=== PATIENT | female | born 1960 | race African-American/Black ===

== ENCOUNTER 2018-07-13 10:21 | Inpatient (IN) | payer MEDICAID ==
[~2018-07-13] VITALS: Ht 170.2 cm; Wt 86.2 kg
[~2018-07-13 10:21] MED LIST: HYDROCHLOROTHIAZIDE; PROZAC; STOOL SOFTNER; TRAZODONE
[2018-07-13] MEDS ORDERED: MORPHINE SULFATE 4 MG/ML CPJ (NOT FOR IM USE) IV STA (11:21)
[2018-07-13] MEDS ORDERED: SODIUM CHLORIDE 0.9% 1,000 ML IV ONE ×2 (11:21→12:30)
[2018-07-13] MEDS ORDERED: PIPERACILLIN/TAZOBACTAM 3.375GM/50ML PREMIX IV ONE (11:30)
[2018-07-13 11:59] LABS: CLARITY URINE CLEAR (CLEAR); COLOR URINE YELLOW (YELLOW); KETONES URINE NEGATIVE (NEGATIVE); LEUKOCYTE ESTERASE URINE NEGATIVE (NEGATIVE); NITRITE URINE NEGATIVE (NEGATIVE); OCCULT BLOOD URINE NEGATIVE (NEGATIVE); PROTEIN URINE NEGATIVE (NEGATIVE); SPECIFIC GRAVITY URINE 1.011 (1.005-1.030); UROBILINOGEN URINE 0.2 E.U./dL (0.2-1.0)
[2018-07-13 12:52] LABS: BASOPHILS % 0.9 % (0.0-2.0); EOSINOPHILS % 0.6 % (0.0-5.0); LYMPHOCYTES % 17.5 % (20.0-50.0); MEAN CORPUSCULAR HEMOGLOBIN 25.3 pg (28.0-32.0); MEAN CORPUSCULAR VOLUME 78.2 fL (81.0-99.0); MEAN PLATELET VOLUME 6.5 fl (7.4-10.4); MONOCYTES % 7.7 % (2.0-8.0); NEUTROPHILS % 73.3 % (40.0-76.0); PLATELET 502 x1000/uL (130-400); RED BLOOD CELL COUNT 4.73 mill/uL (4.2-5.4); RED CELL DISTRIBUTION WIDTH 14.2 % (11.6-14.6)
[2018-07-13 12:56] LABS: CHLORIDE 103 mEq/L (98-107)
[2018-07-13 12:59] LABS: PROTHROMBIN TIME 10.4 sec (9.1-11.1)
[2018-07-13] MEDS ORDERED: PIPERACILLIN/TAZ 3.375G PREMIX 50 ML IV ONE (13:30)
[2018-07-13] MEDS ORDERED: BUPIVACAINE HCL 0.5% (5MG/ML) 50ML ONE (13:39)
[2018-07-13] MEDS ORDERED: SKIN ADHESIVE 0.7 GM EA TOP ONE (13:39)
[2018-07-13] MEDS ORDERED: HYDROCODONE/ACETAMINOPHEN 5/325MG TABLET PO PRN (14:00)
[2018-07-13] MEDS ORDERED: FENTANYL CITRATE/PF 50MCG/ML 2ML VIAL ONE ×3 (14:11→17:06)
[2018-07-13] MEDS ORDERED: NEOSTIGMINE METHYLSULFATE 1MG/ML 10 ML VIAL ONE (14:11)
[2018-07-13] MEDS ORDERED: ROCURONIUM BROMIDE 10MG/ML VIAL 5ML IV ONE (14:11)
[2018-07-13] MEDS ORDERED: METOCLOPRAMIDE HCL 10MG/2ML VIAL ONE (14:12)
[2018-07-13] MEDS ORDERED: CEFAZOLIN SODIUM 1000MG/VIAL ONE (14:12)
[2018-07-13] MEDS ORDERED: PHENYLEPHRINE HCL 10 MG/ML 1ML (IV VIAL) IV ONE (14:12)
[2018-07-13] MEDS ORDERED: GLYCOPYRROLATE 0.2 MG/ML 2ML VIAL ONE (14:12)
[2018-07-13] MEDS ORDERED: EPHEDRINE SULFATE 50MG/ML VIAL ONE (14:12)
[2018-07-13] MEDS ORDERED: PROPOFOL 200MG/20ML VIAL IV ONE (14:12)
[2018-07-13] MEDS ORDERED: SODIUM CHLORIDE 0.9% 10ML VIAL ONE (14:12)
[2018-07-13] MEDS ORDERED: SUCCINYLCHOLINE CHLORIDE 200MG/10ML IV ONE (14:12)
[2018-07-13] MEDS ORDERED: MIDAZOLAM HCL 2 MG/2 ML VIAL ONE (14:12)
[2018-07-13] MEDS ORDERED: LIDOCAINE HCL/PF 1% 10 MG/ML 5ML VIAL ONE (14:12)
[2018-07-13] MEDS ORDERED: DOCUSATE SODIUM 100MG CAPSULE PO PRN (15:15)
[2018-07-13] MEDS ORDERED: HYDROMORPHONE HCL/PF 2MG/ML (OR) ONE (17:36)
[2018-07-13] MEDS ORDERED: DEXT 5%/0.45% NACL KCL 20MEQ/L 1,000 ML IV SCH (18:27)
[2018-07-13] MEDS ORDERED: SODIUM CHLORIDE 0.9% 1,000 ML IV SCH (18:28)
[2018-07-13] MEDS ORDERED: MORPHINE SULFATE 4 MG/ML CPJ (NOT FOR IM USE) IV PRN (18:30)
[2018-07-13] MEDS ORDERED: ONDANSETRON HCL 4MG/2ML INJ IV PRN ×2 (18:30)
[2018-07-13] MEDS ORDERED: MEPERIDINE HCL/PF 25MG/ML CPJ IV PRN ×2 (18:30)
[2018-07-13] MEDS ORDERED: MORPHINE SULFATE 2 MG/ML CPJ (NOT FOR IM USE) IV PRN (18:30)
[2018-07-13] MEDS: HYDROMORPHONE HCL/PF 2MG/ML CPJ IV PRN ×2 (20:01→20:10)
[2018-07-13 21:00] VITALS: BP 118/58
[2018-07-13] MEDS ORDERED: PIPERACILLIN/TAZOBACTAM 3.375 G/VIAL IV SCH (22:00)
[2018-07-13] MEDS: PIPERACILLIN/TAZ 3.375G PREMIX 50 ML IV SCH (22:23)
[2018-07-13] MEDS: FAMOTIDINE 20MG/2ML VIAL IV SCH (22:23)
[2018-07-13] MEDS: DEXT 5%/0.45% NACL KCL 20MEQ/L 1,000 ML IV SCH (23:33)
[2018-07-13] MEDS: MORPHINE SULFATE 4 MG/ML CPJ (NOT FOR IM USE) IV PRN (23:52)
[2018-07-13] MEDS: SODIUM CHLORIDE 0.9% INJ 3ML FLUSH IVF SCH (23:53)
[2018-07-14] VITALS: BP 138/70
[2018-07-14] MEDS ORDERED: ALBUL GT
[2018-07-14] MEDS ORDERED: ALBU18HF2 IH
[2018-07-14 04:00] VITALS: BP 154/83
[2018-07-14] MEDS: MORPHINE SULFATE 4 MG/ML CPJ (NOT FOR IM USE) IV PRN ×2 (04:15→12:52)
[2018-07-14] MEDS: PIPERACILLIN/TAZ 3.375G PREMIX 50 ML IV SCH ×4 (04:15→20:37)
[2018-07-14] MEDS ORDERED: LOSA1TAB40 MT (04:30)
[2018-07-14] MEDS ORDERED: AMLO5TAB88 MT (04:30)
[2018-07-14] MEDS: HYDROCODONE/ACETAMINOPHEN 5/325MG TABLET PO PRN ×2 (07:02→20:37)
[2018-07-14] MEDS: SODIUM CHLORIDE 0.9% INJ 3ML FLUSH IVF SCH ×2 (07:04→14:37)
[2018-07-14 07:29] LABS: HEMATOCRIT. 34.3 % (36.0-48.0); HEMOGLOBIN. 11.1 g/dL (12.0-16.0); MEAN CORPUSCULAR HEMOGLOBIN 25.5 pg (28.0-32.0); MEAN PLATELET VOLUME 6.9 fl (7.4-10.4); PLATELET 453 x1000/uL (130-400); RED BLOOD CELL COUNT 4.35 mill/uL (4.2-5.4); RED CELL DISTRIBUTION WIDTH 14.4 % (11.6-14.6)
[2018-07-14 08:00] VITALS: BP 149/78
[2018-07-14 08:00] LABS: CHLORIDE 108 mEq/L (98-107)
[2018-07-14 08:09] LABS: PHOSPHORUS 2.5 mg/dL (2.5-4.9)
[2018-07-14] MEDS: DEXT 5%/0.45% NACL KCL 20MEQ/L 1,000 ML IV SCH ×2 (08:20→14:38)
[2018-07-14] MEDS: FAMOTIDINE 20MG/2ML VIAL IV SCH ×2 (08:20→20:38)
[2018-07-14] MEDS ORDERED: ACETAMINOPHEN 650MG SUPP PR PRN (10:30)
[2018-07-14 12:00] VITALS: BP 150/77
[2018-07-14 12:18] LABS: PLATELET ESTIMATE INCREASED
[2018-07-14 16:00] VITALS: BP 141/72
[2018-07-14] MEDS ORDERED: GUAIFENESIN-DM 200MG-20MG/10ML UDC PO PRN (19:45)
[2018-07-14 20:00] VITALS: BP 151/73
[2018-07-15] VITALS: BP 143/70
[2018-07-15] MEDS: PIPERACILLIN/TAZ 3.375G PREMIX 50 ML IV SCH ×4 (01:51→20:51)
[2018-07-15] MEDS: HYDROCODONE/ACETAMINOPHEN 5/325MG TABLET PO PRN ×2 (01:52→05:57)
[2018-07-15 04:00] VITALS: BP 141/71
[2018-07-15] MEDS: DEXT 5%/0.45% NACL KCL 20MEQ/L 1,000 ML IV SCH ×2 (04:16→16:51)
[2018-07-15 07:03] LABS: BASOPHILS % 0.2 % (0.0-2.0); EOSINOPHILS % 0.1 % (0.0-5.0); HEMATOCRIT. 28.9 % (36.0-48.0); HEMOGLOBIN. 9.4 g/dL (12.0-16.0); LYMPHOCYTES % 8.5 % (20.0-50.0); MEAN CORPUSCULAR HEMOGLOBIN 25.2 pg (28.0-32.0); MEAN CORPUSCULAR VOLUME 77.4 fL (81.0-99.0); MEAN PLATELET VOLUME 6.9 fl (7.4-10.4); MONOCYTES % 8.8 % (2.0-8.0); NEUTROPHILS % 82.4 % (40.0-76.0); PLATELET 400 x1000/uL (130-400); RED BLOOD CELL COUNT 3.73 mill/uL (4.2-5.4); RED CELL DISTRIBUTION WIDTH 14.3 % (11.6-14.6)
[2018-07-15 07:44] LABS: CHLORIDE 108 mEq/L (98-107)
[2018-07-15 08:00] VITALS: BP 157/80
[2018-07-15] MEDS: FAMOTIDINE 20MG/2ML VIAL IV SCH ×2 (08:32→20:34)
[2018-07-15] MEDS: MORPHINE SULFATE 4 MG/ML CPJ (NOT FOR IM USE) IV PRN ×3 (10:46→20:38)
[2018-07-15 12:00] VITALS: BP 153/79
[2018-07-15 16:00] VITALS: BP 148/68
[2018-07-15] MEDS ORDERED: IPRATROPIUM BROMIDE (0.02%) 0.5MG/2.5ML NEB HHN PRN (18:15)
[2018-07-15 20:00] VITALS: BP_SYST 105; BP_SYST 170; BP_DIAS 60; BP_DIAS 80
[2018-07-15] MEDS: SENNOSIDES/DOCUSATE SOD 8.6/50MG TABLET PO SCH (20:35)
[2018-07-15] MEDS: CLONIDINE 0.1MG TABLET PO PRN (20:35)
[2018-07-15] MEDS: GUAIFENESIN 600MG ER TABLET PO SCH (20:36)
[2018-07-15] MEDS: ONDANSETRON HCL 4MG/2ML INJ IV PRN (20:59)
[2018-07-16] VITALS: BP 146/77
[2018-07-16] MEDS: DEXT 5%/0.45% NACL KCL 20MEQ/L 1,000 ML IV SCH ×3 (03:37→20:42)
[2018-07-16] MEDS: MORPHINE SULFATE 4 MG/ML CPJ (NOT FOR IM USE) IV PRN ×6 (03:37→20:35)
[2018-07-16] MEDS: PIPERACILLIN/TAZ 3.375G PREMIX 50 ML IV SCH ×4 (03:37→20:38)
[2018-07-16 04:00] VITALS: BP 161/88
[2018-07-16 06:07] LABS: HEMATOCRIT. 32.9 % (36.0-48.0); HEMOGLOBIN. 10.7 g/dL (12.0-16.0); MEAN CORPUSCULAR HEMOGLOBIN 25.3 pg (28.0-32.0); MEAN PLATELET VOLUME 6.9 fl (7.4-10.4); PLATELET 481 x1000/uL (130-400); RED BLOOD CELL COUNT 4.22 mill/uL (4.2-5.4); RED CELL DISTRIBUTION WIDTH 14.3 % (11.6-14.6)
[2018-07-16 06:50] LABS: CHLORIDE 106 mEq/L (98-107)
[2018-07-16 08:00] VITALS: BP 179/99
[2018-07-16] MEDS: GUAIFENESIN 600MG ER TABLET PO SCH ×2 (08:30→20:42)
[2018-07-16] MEDS: FAMOTIDINE 20MG/2ML VIAL IV SCH ×2 (08:30→20:35)
[2018-07-16] MEDS: AMLODIPINE 5MG TABLET PO SCH (08:32)
[2018-07-16] MEDS: ONDANSETRON HCL 4MG/2ML INJ IV PRN ×2 (09:02→22:34)
[2018-07-16 12:01] VITALS: BP 180/86
[2018-07-16] MEDS: CLONIDINE 0.1MG TABLET PO PRN ×2 (12:06→18:30)
[2018-07-16] MEDS: LIDOCAINE HCL 4% (40MG/ML) SOLN 50ML TOP SCH (13:30)
[2018-07-16 16:10] VITALS: BP 160/91
[2018-07-16] MEDS: MAGNESIUM/ALUMINUM HYDROXIDE/SIMETHICONE 30ML UDC PO PRN (17:49)
[2018-07-16 20:00] VITALS: BP 178/94
[2018-07-16] MEDS: SENNOSIDES/DOCUSATE SOD 8.6/50MG TABLET PO SCH (20:42)
[2018-07-17] VITALS: BP 162/90
[2018-07-17] MEDS: PIPERACILLIN/TAZ 3.375G PREMIX 50 ML IV SCH ×4 (01:56→19:55)
[2018-07-17] MEDS: MORPHINE SULFATE 4 MG/ML CPJ (NOT FOR IM USE) IV PRN ×6 (01:59→20:54)
[2018-07-17 04:00] VITALS: BP 162/91
[2018-07-17] MEDS: DEXT 5%/0.45% NACL KCL 20MEQ/L 1,000 ML IV SCH ×2 (05:37→17:51)
[2018-07-17 07:22] LABS: BASOPHILS % 0.3 % (0.0-2.0); EOSINOPHILS % 1.7 % (0.0-5.0); HEMATOCRIT. 29.5 % (36.0-48.0); HEMOGLOBIN. 9.5 g/dL (12.0-16.0); LYMPHOCYTES % 11.7 % (20.0-50.0); MEAN CORPUSCULAR HEMOGLOBIN 25.1 pg (28.0-32.0); MEAN CORPUSCULAR VOLUME 77.9 fL (81.0-99.0); MEAN PLATELET VOLUME 6.9 fl (7.4-10.4); MONOCYTES % 7.8 % (2.0-8.0); NEUTROPHILS % 78.5 % (40.0-76.0); PLATELET 460 x1000/uL (130-400); RED BLOOD CELL COUNT 3.79 mill/uL (4.2-5.4); RED CELL DISTRIBUTION WIDTH 14.3 % (11.6-14.6)
[2018-07-17 08:00] VITALS: BP 151/69
[2018-07-17] MEDS: AMLODIPINE 5MG TABLET PO SCH (08:30)
[2018-07-17] MEDS: GUAIFENESIN 600MG ER TABLET PO SCH ×2 (08:31→20:02)
[2018-07-17] MEDS: FAMOTIDINE 20MG/2ML VIAL IV SCH ×2 (08:32→20:01)
[2018-07-17 08:58] LABS: CHLORIDE 102 mEq/L (98-107)
[2018-07-17] MEDS ORDERED: POTASSIUM CHLORIDE INJ 30 MEQ in DEXT 5% WATER 500 ML IV NR (11:30)
[2018-07-17 12:08] VITALS: BP 158/83
[2018-07-17 13:48] LABS: PLATELET ESTIMATE INCREASED
[2018-07-17 15:34] VITALS: BP 154/79
[2018-07-17] MEDS: ONDANSETRON HCL 4MG/2ML INJ IV PRN (19:59)
[2018-07-17 20:00] VITALS: BP 155/80
[2018-07-17] MEDS: SENNOSIDES/DOCUSATE SOD 8.6/50MG TABLET PO SCH (20:02)
[2018-07-17] MEDS: CLONIDINE 0.1MG TABLET PO PRN (20:18)
[2018-07-17] MEDS ORDERED: DIPHENHYDRAMINE 50MG/ML VIAL IV ONE (20:45)
[2018-07-17] MEDS ORDERED: DIPHENHYDRAMINE 50MG/ML VIAL IV SCH (21:00)
[2018-07-18] VITALS: BP 150/77
[2018-07-18] MEDS: PIPERACILLIN/TAZ 3.375G PREMIX 50 ML IV SCH ×4 (03:26→20:48)
[2018-07-18] MEDS: MORPHINE SULFATE 4 MG/ML CPJ (NOT FOR IM USE) IV PRN ×3 (03:27→20:49)
[2018-07-18 04:00] VITALS: BP 139/55
[2018-07-18] MEDS: DEXT 5%/0.45% NACL KCL 20MEQ/L 1,000 ML IV SCH ×2 (04:31→12:00)
[2018-07-18 06:55] LABS: BASOPHILS % 0.2 % (0.0-2.0); EOSINOPHILS % 2.9 % (0.0-5.0); HEMATOCRIT. 27.9 % (36.0-48.0); HEMOGLOBIN. 9.1 g/dL (12.0-16.0); LYMPHOCYTES % 14.5 % (20.0-50.0); MEAN CORPUSCULAR HEMOGLOBIN 25.3 pg (28.0-32.0); MEAN CORPUSCULAR VOLUME 77.5 fL (81.0-99.0); MEAN PLATELET VOLUME 6.7 fl (7.4-10.4); MONOCYTES % 9.1 % (2.0-8.0); NEUTROPHILS % 73.3 % (40.0-76.0); PLATELET 442 x1000/uL (130-400); RED BLOOD CELL COUNT 3.59 mill/uL (4.2-5.4); RED CELL DISTRIBUTION WIDTH 14.5 % (11.6-14.6)
[2018-07-18 07:37] LABS: CHLORIDE 102 mEq/L (98-107)
[2018-07-18 08:00] VITALS: BP 148/73
[2018-07-18] MEDS: AMLODIPINE 5MG TABLET PO SCH (08:37)
[2018-07-18] MEDS: GUAIFENESIN 600MG ER TABLET PO SCH ×2 (08:37→21:00)
[2018-07-18] MEDS: FAMOTIDINE 20MG/2ML VIAL IV SCH ×2 (08:38→20:49)
[2018-07-18 12:00] VITALS: BP 135/68
[2018-07-18] MEDS ORDERED: HYDROCODONE/ACETAMINOPHEN 5/325MG TABLET PO PRN ×2 (15:00)
[2018-07-18] MEDS ORDERED: MORPHINE SULFATE 2 MG/ML CPJ (NOT FOR IM USE) IV PRN (15:00)
[2018-07-18 16:00] VITALS: BP 149/72
[2018-07-18] MEDS: MAGNESIUM/ALUMINUM HYDROXIDE/SIMETHICONE 30ML UDC PO PRN (17:49)
[2018-07-18 20:00] VITALS: BP 124/59
[2018-07-18] MEDS: ONDANSETRON HCL 4MG/2ML INJ IV PRN (20:49)
[2018-07-18] MEDS: SENNOSIDES/DOCUSATE SOD 8.6/50MG TABLET PO SCH (21:00)
[2018-07-19] VITALS: BP 153/79
[2018-07-19] MEDS: MORPHINE SULFATE 4 MG/ML CPJ (NOT FOR IM USE) IV PRN ×5 (00:03→20:18)
[2018-07-19] MEDS: CLONIDINE 0.1MG TABLET PO PRN (00:03)
[2018-07-19] MEDS: PIPERACILLIN/TAZ 3.375G PREMIX 50 ML IV SCH ×4 (01:35→20:02)
[2018-07-19] MEDS: DEXT 5%/0.45% NACL KCL 20MEQ/L 1,000 ML IV SCH ×3 (01:35→13:48)
[2018-07-19 04:00] VITALS: BP 150/77
[2018-07-19] MEDS: SODIUM CHLORIDE 0.9% INJ 3ML FLUSH IVF SCH ×3 (06:00→22:54)
[2018-07-19 06:56] LABS: BASOPHILS % 0.3 % (0.0-2.0); EOSINOPHILS % 1.2 % (0.0-5.0); HEMATOCRIT. 28.6 % (36.0-48.0); HEMOGLOBIN. 9.3 g/dL (12.0-16.0); LYMPHOCYTES % 13.4 % (20.0-50.0); MEAN CORPUSCULAR HEMOGLOBIN 25.1 pg (28.0-32.0); MEAN CORPUSCULAR VOLUME 77.3 fL (81.0-99.0); MEAN PLATELET VOLUME 6.6 fl (7.4-10.4); MONOCYTES % 7.8 % (2.0-8.0); NEUTROPHILS % 77.3 % (40.0-76.0); PLATELET 466 x1000/uL (130-400); RED BLOOD CELL COUNT 3.71 mill/uL (4.2-5.4); RED CELL DISTRIBUTION WIDTH 14.4 % (11.6-14.6)
[2018-07-19 07:32] LABS: CHLORIDE 101 mEq/L (98-107)
[2018-07-19 08:00] VITALS: BP 154/77
[2018-07-19] MEDS: FAMOTIDINE 20MG/2ML VIAL IV SCH ×2 (08:28→20:45)
[2018-07-19] MEDS: GUAIFENESIN 600MG ER TABLET PO SCH ×2 (08:29→20:45)
[2018-07-19] MEDS: AMLODIPINE 5MG TABLET PO SCH (08:30)
[2018-07-19 12:00] VITALS: BP_SYST 145; BP_SYST 148; BP_DIAS 72; BP_DIAS 73
[2018-07-19] MEDS: LIDOCAINE HCL 4% (40MG/ML) SOLN 50ML TOP SCH (13:30)
[2018-07-19 16:00] VITALS: BP_SYST 142; BP_SYST 154; BP_DIAS 68; BP_DIAS 72
[2018-07-19 20:00] VITALS: BP 161/65
[2018-07-19] MEDS: SENNOSIDES/DOCUSATE SOD 8.6/50MG TABLET PO SCH ×2 (20:45→21:00)
[2018-07-19] MEDS: DIPHENHYDRAMINE 50MG/ML VIAL IV PRN (22:54)
[2018-07-20] VITALS: BP 162/73
[2018-07-20] MEDS: PIPERACILLIN/TAZ 3.375G PREMIX 50 ML IV SCH ×4 (02:22→21:59)
[2018-07-20 04:00] VITALS: BP 169/77
[2018-07-20] MEDS: DEXT 5%/0.45% NACL KCL 20MEQ/L 1,000 ML IV SCH (04:05)
[2018-07-20 08:00] VITALS: BP 160/82
[2018-07-20] MEDS: FAMOTIDINE 20MG/2ML VIAL IV SCH ×2 (08:10→21:59)
[2018-07-20] MEDS: MORPHINE SULFATE 4 MG/ML CPJ (NOT FOR IM USE) IV PRN ×2 (08:11→12:04)
[2018-07-20] MEDS: AMLODIPINE 5MG TABLET PO SCH (09:00)
[2018-07-20] MEDS: GUAIFENESIN 600MG ER TABLET PO SCH ×2 (09:00→22:00)
[2018-07-20 12:00] VITALS: BP 172/88
[2018-07-20] MEDS: SODIUM CHLORIDE 0.9% INJ 3ML FLUSH IVF SCH (14:00)
[2018-07-20] MEDS: HYDROCODONE/ACETAMINOPHEN 5/325MG TABLET PO PRN (14:52)
[2018-07-20] MEDS ORDERED: MORPHINE SULFATE 4 MG/ML CPJ (NOT FOR IM USE) IV PRN (15:21)
[2018-07-20] MEDS: LOSARTAN POTASSIUM 100 MG TABLET PO SCH (15:53)
[2018-07-20 16:00] VITALS: BP 177/87
[2018-07-20 20:00] VITALS: BP 164/76
[2018-07-20] MEDS: SENNOSIDES/DOCUSATE SOD 8.6/50MG TABLET PO SCH (21:00)
[2018-07-20] MEDS: HYDROCHLOROTHIAZIDE 12.5MG CAPSULE PO SCH (21:59)
[2018-07-21] VITALS: BP 149/62
[2018-07-21] MEDS: DIPHENHYDRAMINE 50MG/ML VIAL IV PRN ×2 (02:26→20:40)
[2018-07-21] MEDS: HYDROCODONE/ACETAMINOPHEN 5/325MG TABLET PO PRN ×4 (02:27→21:43)
[2018-07-21] MEDS: SODIUM CHLORIDE 0.9% INJ 3ML FLUSH IVF SCH ×4 (02:32→22:00)
[2018-07-21 04:00] VITALS: BP 149/66
[2018-07-21] MEDS: DEXT 5%/0.45% NACL KCL 20MEQ/L 1,000 ML IV SCH ×2 (04:34→16:52)
[2018-07-21 06:46] LABS: BASOPHILS % 0.5 % (0.0-2.0); EOSINOPHILS % 1.6 % (0.0-5.0); HEMATOCRIT. 28.7 % (36.0-48.0); HEMOGLOBIN. 9.2 g/dL (12.0-16.0); LYMPHOCYTES % 11.8 % (20.0-50.0); MEAN CORPUSCULAR VOLUME 77.6 fL (81.0-99.0); MEAN PLATELET VOLUME 6.4 fl (7.4-10.4); MONOCYTES % 8.9 % (2.0-8.0); NEUTROPHILS % 77.2 % (40.0-76.0); PLATELET 540 x1000/uL (130-400); RED CELL DISTRIBUTION WIDTH 14.8 % (11.6-14.6)
[2018-07-21 07:14] LABS: CHLORIDE 105 mEq/L (98-107)
[2018-07-21 08:00] VITALS: BP 148/67
[2018-07-21] MEDS: HYDROCHLOROTHIAZIDE 12.5MG CAPSULE PO SCH (08:51)
[2018-07-21] MEDS: LOSARTAN POTASSIUM 100 MG TABLET PO SCH (08:51)
[2018-07-21] MEDS: GUAIFENESIN 600MG ER TABLET PO SCH ×2 (08:51→20:38)
[2018-07-21] MEDS: FAMOTIDINE 20MG/2ML VIAL IV SCH ×2 (09:31→20:38)
[2018-07-21] MEDS: AMLODIPINE 5MG TABLET PO SCH (09:31)
[2018-07-21 12:00] VITALS: BP 154/75
[2018-07-21 16:00] VITALS: BP 152/61
[2018-07-21] MEDS: PIPERACILLIN/TAZOBACTAM 3.375 G in DEXT 5% WATER 100 ML IV SCH (17:20)
[2018-07-21 20:00] VITALS: BP 172/82
[2018-07-21] MEDS: CLONIDINE 0.1MG TABLET PO PRN (20:38)
[2018-07-21] MEDS: SENNOSIDES/DOCUSATE SOD 8.6/50MG TABLET PO SCH (21:00)
[2018-07-21] MEDS ORDERED: AMLODIPINE 5MG TABLET PO SCH (23:15)
[2018-07-22] VITALS: BP 156/79
[2018-07-22] MEDS: PIPERACILLIN/TAZOBACTAM 3.375 G in DEXT 5% WATER 100 ML IV SCH ×3 (03:14)
[2018-07-22 04:00] VITALS: BP 152/82
[2018-07-22] MEDS: SODIUM CHLORIDE 0.9% INJ 3ML FLUSH IVF SCH ×3 (06:00→21:27)
[2018-07-22 07:16] LABS: BASOPHILS % 0.7 % (0.0-2.0); EOSINOPHILS % 2.1 % (0.0-5.0); HEMATOCRIT. 28.7 % (36.0-48.0); HEMOGLOBIN. 9.4 g/dL (12.0-16.0); LYMPHOCYTES % 14.7 % (20.0-50.0); MEAN CORPUSCULAR HEMOGLOBIN 25.2 pg (28.0-32.0); MEAN CORPUSCULAR VOLUME 77.1 fL (81.0-99.0); MEAN PLATELET VOLUME 6.7 fl (7.4-10.4); MONOCYTES % 9.3 % (2.0-8.0); NEUTROPHILS % 73.2 % (40.0-76.0); PLATELET 592 x1000/uL (130-400); RED BLOOD CELL COUNT 3.72 mill/uL (4.2-5.4); RED CELL DISTRIBUTION WIDTH 14.7 % (11.6-14.6)
[2018-07-22 08:00] VITALS: BP 168/73
[2018-07-22] MEDS: FAMOTIDINE 20MG/2ML VIAL IV SCH ×2 (09:00→20:14)
[2018-07-22] MEDS: LOSARTAN POTASSIUM 100 MG TABLET PO SCH (09:15)
[2018-07-22] MEDS: AMOXICILLIN/POTASSIUM CLAVULANATE 875/125MG TAB PO SCH ×2 (09:15→17:07)
[2018-07-22] MEDS: GUAIFENESIN 600MG ER TABLET PO SCH ×2 (09:16→21:27)
[2018-07-22] MEDS: HYDROCODONE/ACETAMINOPHEN 5/325MG TABLET PO PRN ×4 (09:19→22:31)
[2018-07-22 09:21] LABS: CHLORIDE 104 mEq/L (98-107)
[2018-07-22] MEDS: HYDROCHLOROTHIAZIDE 12.5MG CAPSULE PO SCH (09:22)
[2018-07-22] MEDS: AMLODIPINE 5MG TABLET PO SCH (09:23)
[2018-07-22 10:00] VITALS: BP 151/88
[2018-07-22] MEDS ORDERED: DICYCLOMINE HCL 20MG TABLET PO SCH (12:00)
[2018-07-22 16:00] VITALS: BP 151/78
[2018-07-22] MEDS ORDERED: PIPERACILLIN/TAZ 3.375G PREMIX 50 ML IV SCH (18:00)
[2018-07-22] MEDS ORDERED: SIMETHICONE 80MG TABLET CHEW PO PRN (18:30)
[2018-07-22 20:00] VITALS: BP 138/64
[2018-07-22] MEDS: DEXT 5%/0.45% NACL KCL 20MEQ/L 1,000 ML IV SCH (20:00)
[2018-07-22] MEDS: SENNOSIDES/DOCUSATE SOD 8.6/50MG TABLET PO SCH ×2 (21:00→21:27)
[2018-07-23] VITALS: BP 151/72
[2018-07-23] MEDS: DEXT 5%/0.45% NACL KCL 20MEQ/L 1,000 ML IV SCH (02:00)
[2018-07-23 04:00] VITALS: BP 154/76
[2018-07-23] MEDS: HYDROCODONE/ACETAMINOPHEN 5/325MG TABLET PO PRN (05:11)
[2018-07-23] MEDS: SODIUM CHLORIDE 0.9% INJ 3ML FLUSH IVF SCH (06:00)
[2018-07-23 07:50] LABS: BASOPHILS % 0.6 % (0.0-2.0); EOSINOPHILS % 1.4 % (0.0-5.0); HEMOGLOBIN. 10.1 g/dL (12.0-16.0); LYMPHOCYTES % 14.9 % (20.0-50.0); MEAN CORPUSCULAR HEMOGLOBIN 25.1 pg (28.0-32.0); MEAN CORPUSCULAR VOLUME 77.2 fL (81.0-99.0); MEAN PLATELET VOLUME 6.7 fl (7.4-10.4); MONOCYTES % 7.9 % (2.0-8.0); NEUTROPHILS % 75.2 % (40.0-76.0); PLATELET 682 x1000/uL (130-400); RED BLOOD CELL COUNT 4.02 mill/uL (4.2-5.4); RED CELL DISTRIBUTION WIDTH 14.8 % (11.6-14.6)
[2018-07-23 08:00] VITALS: BP 122/66
[2018-07-23 08:03] VITALS: BP 148/73
[2018-07-23 08:37] LABS: CHLORIDE 101 mEq/L (98-107)
[2018-07-23] MEDS: FAMOTIDINE 20MG/2ML VIAL IV SCH (09:00)
[2018-07-23] MEDS: AMOXICILLIN/POTASSIUM CLAVULANATE 875/125MG TAB PO SCH (09:04)
[2018-07-23] MEDS: HYDROCHLOROTHIAZIDE 12.5MG CAPSULE PO SCH (09:05)
[2018-07-23] MEDS: LOSARTAN POTASSIUM 100 MG TABLET PO SCH (09:05)
[2018-07-23] MEDS: GUAIFENESIN 600MG ER TABLET PO SCH (09:06)
[2018-07-23] MEDS: AMLODIPINE 5MG TABLET PO SCH (09:07)
[2018-07-23 10:51] VITALS: BP 140/73
== END 2018-07-23 11:20 | disposition home or self-care (01) | DRG 231 ==
LOC: ER 10:21 → 6EST 13:29 → ENRESERV 13:32 → CANRESERV 13:32 → EDBEDREQ 13:37 → ENRESERV 17:04
PROVIDERS: ADMIT Family Medicine Adult Medicine; ATTEND Family Medicine Adult Medicine
PROC: 0DTF0ZZ Resection of Right Large Intestine, Open Approach (ICD-10-PCS; principal; 2018-07-13)
PROC: 0DJD4ZZ Inspection of Lower Intestinal Tract, Percutaneous Endoscopic Approach (ICD-10-PCS; 2018-07-13)
DX: K35.33 Acute appendicitis with perforation, localized peritonitis, and gangrene, with abscess (principal); K56.7 Ileus, unspecified; D64.9 Anemia, unspecified; K63.89 Other specified diseases of intestine; G89.29 Other chronic pain; F32.9 Major depressive disorder, single episode, unspecified; K57.90 Diverticulosis of intestine, part unspecified, without perforation or abscess without bleeding; G89.18 Other acute postprocedural pain; K21.9 Gastro-esophageal reflux disease without esophagitis; M51.36 Other intervertebral disc degeneration, lumbar region; I10 Essential (primary) hypertension; K56.41 Fecal impaction; Z53.31 Laparoscopic surgical procedure converted to open procedure; Z88.3 Allergy status to other anti-infective agents; Z88.8 Allergy status to other drugs, medicaments and biological substances; Z98.51 Tubal ligation status
CPT/HCPCS: 36415; 71045; 73706; 74018; 74176; 76830; 76856; 80048; 82962; 83735; 84100; 88307; 93005; 93970; 96365; 96375; 97116; 97162; 97530; 99285; C1893; J0330; J0690; J1170; J1200; J2250; J2270; J2370; J2405; J2543; J2704; J2710; J2765; J3010; J3480; J3490; J7030; J7040; J7060; J7070